=== PATIENT | female | born 1950 | race Caucasian/White ===

== ENCOUNTER 2018-05-04 05:45 | Day surgery (SDC) | payer MEDICARE, MEDICAID ==
[~2018-05-04] VITALS: Ht 157.5 cm; Wt 76.0 kg
[2018-05-04] MEDS ORDERED: ALBUTEROL SULFATE 2.5 MG/0.5 ML NEB SOLUTION NEB ONE (05:46)
[2018-05-04] MEDS ORDERED: BENZOCAINE 20% 50 MCG/SPRAY 57 GM TP ONE (05:46)
[2018-05-04] MEDS ORDERED: LIDOCAINE 2% 30 ML JELLY TP ONE (05:46)
[2018-05-04] MEDS ORDERED: EPINEPHrine 1:1,000 [1 MG/ML] AMP IM ONE (05:46)
[2018-05-04] MEDS ORDERED: LIDOCAINE 4% 50 ML SOLUTION TP ONE (05:46)
[2018-05-04] MEDS ORDERED: SODIUM CHLORIDE 0.9% 1,000 ML IV ONE ×2 (05:49→07:00)
[2018-05-04 07:18] LABS: GLUCOMETER DEV NAME(LOC) SDS 5; GLUCOSE,POINT OF CARE 130 MG/DL (70-110)
[2018-05-04] MEDS ORDERED: MIDAZOLAM HCL 2 MG/2 ML VIAL ONE (07:31)
[2018-05-04] MEDS ORDERED: FentaNYL CITRATE-PF 100 MCG/2 ML VIAL ONE (07:31)
[2018-05-04] MEDS ORDERED: METO25 PO (07:49)
[2018-05-04] MEDS ORDERED: OXYB5 PO (07:49)
[2018-05-04] MEDS ORDERED: DOXY100C PO (07:49)
[2018-05-04] MEDS ORDERED: ALEN70TA48 PO (07:49)
[2018-05-04] MEDS ORDERED: GABA-531 PO (07:49)
[2018-05-04] MEDS ORDERED: SERT50TA12 PO (07:49)
[2018-05-04] MEDS ORDERED: MONT10TA21 PO (07:49)
[2018-05-04] MEDS ORDERED: BACL10TA PO (07:49)
[2018-05-04] MEDS ORDERED: ALBU8.5H8 IH (07:49)
[2018-05-04] MEDS ORDERED: SIMV-259 PO (07:49)
[2018-05-04] MEDS ORDERED: FLUT16H NASAL (07:49)
[2018-05-04] MEDS ORDERED: FAMO20 PO (07:49)
[2018-05-04] MEDS ORDERED: CHOL50004 PO (07:49)
[2018-05-04] MEDS ORDERED: BECL10.62 IH (07:49)
[2018-05-04] MEDS ORDERED: DULO30CA2 PO (07:49)
[2018-05-04] MEDS ORDERED: OMEP20 PO (07:49)
[2018-05-04] MEDS ORDERED: GLIP10 PO (07:49)
[2018-05-04] MEDS ORDERED: TRAZ-219 PO (07:49)
[2018-05-04] MEDS ORDERED: PIOG45TA4 PO (07:49)
[2018-05-04] MEDS ORDERED: ACET500C4 PO (07:49)
[2018-05-04] MEDS ORDERED: PROM6.2522 PO (07:49)
[2018-05-04] MEDS ORDERED: PRED10 PO (07:49)
[2018-05-04] MEDS ORDERED: ASPI81 PO (07:49)
[2018-05-04] MEDS ORDERED: MethylPREDNISolone SOD SUCC 125 MG/2 ML VIAL IVP ONE (08:15)
[2018-05-04] MEDS ORDERED: MethylPREDNISolone SOD SUCC 125 MG/2 ML VIAL ONE (08:26)
[2018-05-04] MEDS ORDERED: OXYGEN THERAPY IH SCH (20:00)
== END 2018-05-04 10:40 | disposition home or self-care (01) ==
LOC: SURGERY 05:45
PROVIDERS: ATTEND Internal Medicine Critical Care Medicine
DX: J38.4 Edema of larynx (principal); B37.0 Candidal stomatitis; J84.111 Idiopathic interstitial pneumonia, not otherwise specified; J98.09 Other diseases of bronchus, not elsewhere classified; J98.8 Other specified respiratory disorders; I10 Essential (primary) hypertension; E11.9 Type 2 diabetes mellitus without complications; E78.00 Pure hypercholesterolemia, unspecified; M19.90 Unspecified osteoarthritis, unspecified site; K21.9 Gastro-esophageal reflux disease without esophagitis; Z79.82 Long term (current) use of aspirin; Z79.2 Long term (current) use of antibiotics; Z88.1 Allergy status to other antibiotic agents; Z88.8 Allergy status to other drugs, medicaments and biological substances; Z90.49 Acquired absence of other specified parts of digestive tract; Z90.710 Acquired absence of both cervix and uterus; Z79.01 Long term (current) use of anticoagulants; Z79.891 Long term (current) use of opiate analgesic; Z79.84 Long term (current) use of oral hypoglycemic drugs; Z79.899 Other long term (current) drug therapy; Z98.890 Other specified postprocedural states
CPT/HCPCS: 31623; 31624; 71045; 82962; 87015; 87070; 87205; 87206; 87220; 88108; 88312; J0171; J2250; J2930; J3010; J7030

== ENCOUNTER 2020-02-23 06:24 | Day surgery (SDC) | payer OTHER ==
[~2020-02-23] VITALS: Ht 154.9 cm; Wt 76.4 kg
[~2020-02-23 06:24] MED LIST: ACET500C4 PO; ALBU8.5H8 IH; ALEN70TA65 PO; ASPI-728 PO; BACL10TA PO; BECL10.62 IH; CHOL125C2 PO; DOXY100C PO; DULO30CA96 PO; FAMO20 PO; FLUT16H NASAL; GABA-1181 PO; GLIP10 PO; METO25 PO; MONT-35 PO; OMEP20 PO; OXYB5 PO; PIOG45TA4 PO; PRED10 PO; PROM6.2521 PO; SERT50TA12 PO; SIMV-259 PO; SODIUM CHLORIDE 0.9% 1,000 ML IV ONE; SODIUM CHLORIDE 0.9% 1,000 ML ONE; TRAZ-252 PO
[2020-02-23] MEDS ORDERED: LIDOCAINE 4% 50 ML SOLUTION TP ONE (06:25)
[2020-02-23] MEDS ORDERED: LIDOCAINE 2% 30 ML JELLY TP ONE (06:25)
[2020-02-23] MEDS ORDERED: ALBUTEROL SULFATE 2.5 MG/0.5 ML NEB SOLUTION NEB ONE (06:25)
[2020-02-23 07:17] LABS: GLUCOMETER DEV NAME(LOC) SDS.; GLUCOSE,POINT OF CARE 151 MG/DL (70-110)
[2020-02-23] MEDS ORDERED: LOSA25TA21 PO (07:30)
[2020-02-23] MEDS ORDERED: OS500 PO (07:32)
[2020-02-23] MEDS ORDERED: SUCR1TAB28 PO (07:32)
[2020-02-23] MEDS ORDERED: ESCI-8 PO (07:32)
[2020-02-23] MEDS ORDERED: ATEN-72 PO (07:32)
[2020-02-23] MEDS ORDERED: FentaNYL CITRATE-PF 100 MCG/2 ML VIAL ONE (07:53)
[2020-02-23] MEDS ORDERED: MIDAZOLAM HCL 2 MG/2 ML VIAL ONE (07:53)
[2020-02-23] MEDS ORDERED: MethylPREDNISolone SOD SUCC 125 MG/2 ML VIAL IVP ONE (08:45)
[2020-02-23] MEDS ORDERED: OXYGEN THERAPY IH SCH (20:00)
== END 2020-02-23 10:20 | disposition home or self-care (01) ==
LOC: SURGERY 06:24
PROVIDERS: ATTEND Internal Medicine Critical Care Medicine
DX: R05 Cough (principal); R91.1 Solitary pulmonary nodule; J34.89 Other specified disorders of nose and nasal sinuses; J98.8 Other specified respiratory disorders; J38.4 Edema of larynx; B37.0 Candidal stomatitis; Z20.828 Contact with and (suspected) exposure to other viral communicable diseases; Z79.899 Other long term (current) drug therapy; E11.9 Type 2 diabetes mellitus without complications; E78.00 Pure hypercholesterolemia, unspecified; I10 Essential (primary) hypertension; G47.33 Obstructive sleep apnea (adult) (pediatric); J45.909 Unspecified asthma, uncomplicated; M19.042 Primary osteoarthritis, left hand; M19.041 Primary osteoarthritis, right hand; Z90.49 Acquired absence of other specified parts of digestive tract; Z98.890 Other specified postprocedural states; Z88.1 Allergy status to other antibiotic agents; Z88.8 Allergy status to other drugs, medicaments and biological substances
CPT/HCPCS: 31623; 31624; 71045; 82962; 87015; 87070; 87101; 87205; 87206; 87220; 87635; 93005; J2250; J2930; J3010; J7030; 88108; 88312; J7613; Z7610